=== PATIENT | male | born 1975 | race Two or more races ===

== ENCOUNTER 2023-01-09 19:45 | Emergency (ER) | payer MEDICAID, OTHER ==
[2023-01-11] MEDS ORDERED: TRAM50TA2 PO (12:02)
[2023-01-11] MEDS ORDERED: NITR-87 PO (12:05)
== END 2023-01-09 20:37 | disposition left against medical advice (07) ==
LOC: ER 19:50
DX: R06.02 Shortness of breath (principal); Z53.21 Procedure and treatment not carried out due to patient leaving prior to being seen by health care provider

== ENCOUNTER → 2023-01-11 | Emergency (ER) | payer MEDICAID ==
[~2023-01-11] VITALS: Ht 180.3 cm; Wt 78.7 kg
[~2023-01-11] MED LIST: KETOROLAC TROMETH 30 MG/ML 1ML VIAL IV ONE; NITR-87 PO; SODIUM CHLORIDE 0.9% 1,000 ML IVB ONE; TRAM50TA2 PO; cefTRIAXone 1GM/50ML D5W 50 ML IV ONE
[2023-01-11 11:20] LABS: Urine Bacteria NONE SEEN /hpf (None Seen); Urine Blood Negative /uL (Negative); Urine Clarity Clear (Clear); Urine Color Yellow (Yellow); Urine Hyaline Cast FEW /lpf (0 - 2); Urine Mucus FEW (None Seen); Urine Protein, UAD 1+ (Negative); Urine WBC 6 /hpf (0 - 3); Urine pH 5.5 (5.0-8.0)
[2023-01-11 11:24] LABS: Basophils # (auto) 0.2 10 ^3/uL (0-0.2); Basophils % (auto) 1.2 % (0.0-2.0); Eosinophils # (auto) 0.3 10 ^3/uL (0-0.8); Eosinophils % (auto) 2.1 % (0.0-7.0); Hematocrit 50.9 % (41.0-53.0); Hemoglobin 17.4 g/dL (13.5-17.5); Lymphocytes # (auto) 2.9 10 ^3/uL (0.4-5.4); Lymphocytes % (auto) 21.5 % (10.0-50.0); Mean Corpuscular Hemoglobin 31.6 pg (28.0-32.0); Mean Corpuscular Hgb Conc. 34.2 g/dL (32.0-36.0); Mean Corpuscular Volume 92.4 fL (80.0-100.0); Monocytes # (auto) 0.7 10 ^3/uL (0-1.3); Neutrophils # (auto) 9.5 10 ^3/uL (1.6-8.6); Neutrophils % (auto) 70.2 % (37.0-80.0); Nucleated Red Blood Cells % 0.1 %; Red Cell Distribution Width 12.9 % (11.8-14.3); White Blood Cell 13.5 10^3/uL (4.4-10.8)
[2023-01-11 11:47] LABS: Alanine Aminotransferase 21 U/L (7-40); Albumin 4.8 g/dL (3.2-4.8); Alkaline Phosphatase 76 U/L (46-116); Anion Gap 7 (5-15); Aspartate Aminotransferase < 8 U/L (13-40); BUN/Creatinine Ratio 8.8 (10.0-20.0); Blood Urea Nitrogen 10 mg/dL (9-23); Calcium 9.7 mg/dL (8.5-10.1); Carbon Dioxide 26 mmol/L (20-30); Chloride 106 mmol/L (98-107); Glucose 124 mg/dL (74-106); Potassium 4.3 mmol/L (3.5-5.1); Sodium 139 mmol/L (136-145); Total Protein 7.8 g/dL (5.7-8.2)
[2023-01-11 15:25] VITALS: BP 127/77; PULSE 86; RESP 18; TEMP 97.7; O2SAT 96
== END | disposition home or self-care (01) ==
LOC: ER 10:35
DX: N20.0 Calculus of kidney (principal); N39.0 Urinary tract infection, site not specified; F17.210 Nicotine dependence, cigarettes, uncomplicated; D72.829 Elevated white blood cell count, unspecified
CPT/HCPCS: 36415; 74176; 80053; 81001; 85025; 96365; 96375; 99285; J0696; J1885; J7030

== ENCOUNTER 2023-06-12 08:41 | Emergency (ER) | payer MEDICAID ==
[~2023-06-12] VITALS: Ht 180.3 cm; Wt 82.1 kg
[~2023-06-12 08:41] MED LIST changes: -KETOROLAC TROMETH 30 MG/ML 1ML VIAL IV ONE; -SODIUM CHLORIDE 0.9% 1,000 ML IVB ONE; -cefTRIAXone 1GM/50ML D5W 50 ML IV ONE
[2023-06-12 09:16] LABS: Basophils # (auto) 0.1 10 ^3/uL (0-0.2); Basophils % (auto) 0.6 % (0.0-2.0); Eosinophils # (auto) 0.4 10 ^3/uL (0-0.8); Eosinophils % (auto) 2.2 % (0.0-7.0); Hematocrit 46.2 % (41.0-53.0); Hemoglobin 15.7 g/dL (13.5-17.5); Lymphocytes # (auto) 4.1 10 ^3/uL (0.4-5.4); Lymphocytes % (auto) 22.1 % (10.0-50.0); Mean Corpuscular Hemoglobin 31.5 pg (28.0-32.0); Mean Corpuscular Hgb Conc. 33.9 g/dL (32.0-36.0); Mean Corpuscular Volume 92.8 fL (80.0-100.0); Monocytes # (auto) 1.2 10 ^3/uL (0-1.3); Monocytes % (auto) 6.4 % (0.0-12.0); Neutrophils # (auto) 12.6 10 ^3/uL (1.6-8.6); Neutrophils % (auto) 68.7 % (37.0-80.0); Red Blood Cells 4.97 10^6/uL (4.5-5.90); Red Cell Distribution Width 12.9 % (11.8-14.3); White Blood Cell 18.3 10^3/uL (4.4-10.8)
[2023-06-12 09:25] LABS: Alanine Aminotransferase 39 U/L (7-40); Alkaline Phosphatase 81 U/L (46-116); Anion Gap 8 (5-15); Calcium 9.9 mg/dL (8.7-10.4); Carbon Dioxide 27 mmol/L (20-30); Chloride 105 mmol/L (98-107); Glucose 100 mg/dL (74-106); INR 1.03 (0.9-1.15); Magnesium 1.8 mg/dL (1.6-2.6); Partial Thromboplastin Time 30.7 SEC (24.5-34.5); Potassium 4.3 mmol/L (3.5-5.1); Prothrombin Time 10.8 sec (9.3-11.8); Sodium 140 mmol/L (136-145)
[2023-06-12 09:26] LABS: Albumin 4.7 g/dL (3.2-4.8); Aspartate Aminotransferase 23 U/L (13-40); BUN/Creatinine Ratio 13.8 (10.0-20.0); Blood Urea Nitrogen 15 mg/dL (9-23); Total Protein 7.1 g/dL (5.7-8.2)
[2023-06-12] MEDS: ASPirin 325 MG TAB PO ONE (09:48)
[2023-06-12 09:50] VITALS: RESP 16; O2SAT 96
[2023-06-12] MEDS ORDERED: AMOX500T3 PO (12:16)
[2023-06-12 12:47] VITALS: BP 117/79; PULSE 104; RESP 15; TEMP 97.8; O2SAT 96
== END 2023-06-12 12:48 | disposition home or self-care (01) ==
LOC: ER 08:41
DX: J40 Bronchitis, not specified as acute or chronic (principal); Z79.899 Other long term (current) drug therapy
CPT/HCPCS: 36415; 71045; 80053; 83735; 83880; 84484; 85025; 85379; 85610; 85730; 93005